=== PATIENT | female | born 1935 | race Caucasian/White ===

== ENCOUNTER → 2024-06-09 13:43 | Outpatient (REF) | payer MEDICARE, OTHER, SELFPAY | LOC: RCS 13:43 | PROVIDERS: ATTENDING PHYSICIAN Internal Medicine Cardiovascular Disease; FAMILY PHYSICIAN Family Medicine | DX: I35.0 Nonrheumatic aortic (valve) stenosis (principal); I34.0 Nonrheumatic mitral (valve) insufficiency | CPT/HCPCS: 93306 ==